=== PATIENT | female | born 1960 | race Native Hawaiian/Other Pacific Islander ===

== ENCOUNTER 2016-03-11 09:33 | Inpatient (IN) | payer OTHER ==
[~2016-03-11 09:33] MED LIST: ALUMSUS6 PO; BACLOFEN10 MG PO; CLOP75TA2 PO; DOCU100C10 PO; DONE5TAB PO; LAXATIVE1 TAB PO; LEXAPRO20 MG PO; METO25TA4 PO; ONDA4TAB3 PO; PANT40TA PO; POLY3350 PO; TGT ENTERIC-CO325 MG PO
== END 2016-04-11 08:00 | disposition still patient (30) ==
LOC: PAVB 09:33
PROVIDERS: ADMIT Family Medicine
DX: Z51.89 Encounter for other specified aftercare (principal)

== ENCOUNTER 2016-04-11 09:00 | Inpatient (IN) | payer OTHER | END 2016-05-12 10:17 | disposition still patient (30) | LOC: PAVB 09:00 | PROVIDERS: ADMIT Family Medicine | DX: Z51.89 Encounter for other specified aftercare (principal) ==

== ENCOUNTER 2016-04-28 15:02 | Outpatient (CLI) | payer OTHER | END 2016-04-28 19:36 | disposition home or self-care (01) | LOC: CT 15:02 | DX: G44.011 Episodic cluster headache, intractable (principal) ==

== ENCOUNTER 2016-05-12 10:46 | Inpatient (IN) | payer OTHER | END 2016-06-09 09:46 | disposition still patient (30) | LOC: PAVB 10:46 | PROVIDERS: ADMIT Family Medicine | DX: Z51.89 Encounter for other specified aftercare (principal) ==

== ENCOUNTER 2016-06-03 11:32 | Outpatient (CLI) | payer OTHER | END 2016-06-03 19:23 | disposition home or self-care (01) | LOC: MRI 11:32 | DX: R51 Headache (principal); Z86.73 Personal history of transient ischemic attack (TIA), and cerebral infarction without residual deficits ==

== ENCOUNTER 2016-06-09 10:45 | Inpatient (IN) | payer OTHER | END 2016-07-10 08:07 | disposition still patient (30) | LOC: PAVB 10:45 | PROVIDERS: ADMIT Family Medicine | DX: Z51.89 Encounter for other specified aftercare (principal) ==

== ENCOUNTER 2016-06-10 06:17 | Outpatient (CLI) | payer OTHER ==
[2016-06-10 06:45] LABS: PLATELET COUNT 273 K/uL (152-353)
[2016-06-10 06:55] LABS: SODIUM 143 mmol/L (136-145)
== END 2016-06-10 19:28 | disposition home or self-care (01) ==
LOC: LAB 06:17
PROVIDERS: Family Medicine
DX: I10 Essential (primary) hypertension (principal)
CPT/HCPCS: 36415; 80053; 85027

== ENCOUNTER 2016-07-10 09:32 | Inpatient (IN) | payer OTHER | END 2016-08-09 09:14 | disposition still patient (30) | LOC: PAVB 09:32 | PROVIDERS: ADMIT Family Medicine | DX: Z51.89 Encounter for other specified aftercare (principal) ==

== ENCOUNTER 2016-07-27 05:01 | Outpatient (CLI) | payer OTHER | END 2016-07-27 19:09 | disposition home or self-care (01) | LOC: LAB 05:01 | DX: Z16.24 Resistance to multiple antibiotics (principal) | CPT/HCPCS: 87081 ==

== ENCOUNTER 2016-08-09 10:08 | Inpatient (IN) | payer OTHER | END 2016-09-09 09:36 | disposition still patient (30) | LOC: PAVB 10:08 | PROVIDERS: ADMIT Family Medicine | DX: Z51.89 Encounter for other specified aftercare (principal) ==

== ENCOUNTER 2016-08-20 16:19 | Outpatient (CLI) | payer OTHER | END 2016-08-20 20:03 | disposition home or self-care (01) | LOC: LAB 16:19 | DX: R82.99 Other abnormal findings in urine (principal) | CPT/HCPCS: 81000; 87077; 87086; 87088; 87186 ==

== ENCOUNTER 2016-09-09 10:04 | Inpatient (IN) | payer OTHER | END 2016-10-09 15:23 | disposition still patient (30) | LOC: PAVB 10:04 | PROVIDERS: ADMIT Family Medicine | DX: Z51.89 Encounter for other specified aftercare (principal) ==

== ENCOUNTER 2016-09-21 09:17 | Outpatient (CLI) | payer OTHER | END 2016-09-21 10:50 | disposition home or self-care (01) | LOC: MRI 09:17 | DX: R51 Headache (principal); I72.8 Aneurysm of other specified arteries ==

== ENCOUNTER 2016-10-07 05:05 | Outpatient (CLI) | payer OTHER | END 2016-10-07 06:10 | disposition home or self-care (01) | LOC: LAB 05:05 | PROVIDERS: Family Medicine | DX: I10 Essential (primary) hypertension (principal) | CPT/HCPCS: 80061 ==

== ENCOUNTER 2016-10-09 15:45 | Inpatient (IN) | payer OTHER | END 2016-11-09 09:44 | disposition still patient (30) | LOC: PAVB 15:45 | PROVIDERS: ADMIT Family Medicine | DX: Z51.89 Encounter for other specified aftercare (principal) ==

== ENCOUNTER 2016-10-11 10:49 | Outpatient (CLI) | payer OTHER | END 2016-10-11 11:50 | disposition home or self-care (01) | LOC: LAB 10:49 | DX: R56.9 Unspecified convulsions (principal); R30.0 Dysuria | CPT/HCPCS: 80183; 81000; 87086; 87088 ==

== ENCOUNTER 2016-11-09 11:03 | Inpatient (IN) | payer OTHER | END 2016-12-10 08:42 | disposition still patient (30) | LOC: PAVB 11:03 | PROVIDERS: ADMIT Family Medicine | DX: Z51.89 Encounter for other specified aftercare (principal) ==

== ENCOUNTER 2016-11-09 18:41 | Outpatient (CLI) | payer OTHER | END 2016-11-09 19:12 | disposition home or self-care (01) | LOC: LAB 18:41 | DX: R35.8 Other polyuria (principal); R30.0 Dysuria | CPT/HCPCS: 81000; 87077; 87086; 87088; 87186 ==

== ENCOUNTER 2016-12-10 09:19 | Inpatient (IN) | payer OTHER | END 2017-01-09 10:40 | disposition still patient (30) | LOC: PAVB 09:19 | PROVIDERS: ADMIT Family Medicine | DX: Z51.89 Encounter for other specified aftercare (principal) ==

== ENCOUNTER 2016-12-13 04:45 | Outpatient (CLI) | payer OTHER ==
[2016-12-13 05:50] LABS: POTASSIUM 3.7 mmol/L (3.6-5.2); SODIUM 140 mmol/L (136-145)
[2016-12-13 06:38] LABS: PLATELET COUNT 243 K/uL (152-353)
== END 2016-12-13 18:57 | disposition home or self-care (01) ==
LOC: LAB 04:45
PROVIDERS: Family Medicine
DX: I10 Essential (primary) hypertension (principal)
CPT/HCPCS: 36415; 80053; 85027

== ENCOUNTER 2016-12-14 17:18 | Outpatient (CLI) | payer OTHER | END 2016-12-14 19:04 | disposition home or self-care (01) | LOC: RAD 17:18 | DX: M25.561 Pain in right knee (principal); M79.621 Pain in right upper arm ==

== ENCOUNTER 2017-01-05 13:51 | Outpatient (CLI) | payer OTHER | END 2017-01-05 19:09 | disposition home or self-care (01) | LOC: RAD 13:51 | DX: M79.604 Pain in right leg (principal); R60.0 Localized edema ==

== ENCOUNTER 2017-01-09 10:47 | Inpatient (IN) | payer OTHER | END 2017-02-09 12:58 | disposition still patient (30) | LOC: PAVB 10:47 | PROVIDERS: ADMIT Family Medicine ==

== ENCOUNTER 2017-02-09 13:55 | Inpatient (IN) | payer OTHER | END 2017-03-11 09:21 | disposition still patient (30) | LOC: PAVB 13:55 | PROVIDERS: ADMIT Family Medicine ==

== ENCOUNTER 2017-03-11 09:45 | Inpatient (IN) | payer OTHER | END 2017-04-11 09:32 | disposition still patient (30) | LOC: PAVB 09:45 | PROVIDERS: ADMIT Family Medicine ==

== ENCOUNTER 2017-03-15 16:19 | Outpatient (CLI) | payer OTHER | END 2017-03-15 17:20 | disposition home or self-care (01) | LOC: LAB 16:19 | DX: R30.0 Dysuria (principal); R35.8 Other polyuria | CPT/HCPCS: 81000; 87077; 87086; 87088; 87186 ==

== ENCOUNTER 2017-04-11 10:08 | Inpatient (IN) | payer OTHER | END 2017-05-12 09:51 | disposition still patient (30) | LOC: PAVB 10:08 | PROVIDERS: ADMIT Family Medicine ==

== ENCOUNTER 2017-04-19 06:49 | Outpatient (CLI) | payer OTHER | END 2017-04-19 19:02 | disposition home or self-care (01) | LOC: LAB 06:49 | DX: R56.9 Unspecified convulsions (principal) | CPT/HCPCS: 36415; 80183 ==

== ENCOUNTER 2017-05-12 10:43 | Inpatient (IN) | payer OTHER | END 2017-06-09 09:20 | disposition still patient (30) | LOC: PAVB 10:43 | PROVIDERS: ADMIT Family Medicine ==

== ENCOUNTER 2017-06-09 10:06 | Inpatient (IN) | payer OTHER | END 2017-07-10 08:00 | disposition still patient (30) | LOC: PAVB 10:06 | PROVIDERS: ADMIT Family Medicine ==

== ENCOUNTER 2017-06-13 03:57 | Outpatient (CLI) | payer OTHER ==
[2017-06-13 05:24] LABS: PLATELET COUNT 318 K/uL (152-353)
[2017-06-13 05:42] LABS: POTASSIUM 3.6 mmol/L (3.6-5.2)
== END 2017-06-13 19:16 | disposition home or self-care (01) ==
LOC: LABW 03:57
PROVIDERS: Family Medicine
DX: I10 Essential (primary) hypertension (principal)
CPT/HCPCS: 36415; 80053; 85027

== ENCOUNTER 2017-07-10 09:00 | Inpatient (IN) | payer OTHER | END 2017-08-09 09:05 | disposition still patient (30) | LOC: PAVB 09:00 | PROVIDERS: ADMIT Family Medicine ==

== ENCOUNTER 2017-08-09 09:47 | Inpatient (IN) | payer OTHER | END 2017-09-09 08:54 | disposition still patient (30) | LOC: PAVB 09:47 | PROVIDERS: ADMIT Family Medicine ==

== ENCOUNTER 2017-09-09 09:24 | Inpatient (IN) | payer OTHER | END 2017-10-09 14:20 | disposition still patient (30) | LOC: PAVB 09:24 | PROVIDERS: ADMIT Family Medicine ==

== ENCOUNTER 2017-10-09 14:56 | Inpatient (IN) | payer OTHER | END 2017-11-09 08:00 | disposition still patient (30) | LOC: PAVB 14:56 | PROVIDERS: ADMIT Family Medicine ==

== ENCOUNTER 2017-10-11 08:26 | Outpatient (CLI) | payer OTHER | END 2017-10-11 23:11 | disposition home or self-care (01) | LOC: LAB 08:26 | DX: R56.9 Unspecified convulsions (principal) | CPT/HCPCS: 36415; 80183 ==

== ENCOUNTER 2017-11-09 09:00 | Inpatient (IN) | payer OTHER | END 2017-12-10 10:19 | disposition still patient (30) | LOC: PAVB 09:00 | PROVIDERS: ADMIT Family Medicine ==

== ENCOUNTER 2017-12-10 11:04 | Inpatient (IN) | payer OTHER | END 2018-01-09 09:34 | disposition still patient (30) | LOC: PAVB 11:04 | PROVIDERS: ADMIT Family Medicine ==

== ENCOUNTER 2017-12-15 04:42 | Outpatient (CLI) | payer OTHER ==
[2017-12-15 08:15] LABS: PLATELET COUNT 284 K/uL (152-353)
== END 2017-12-15 23:15 | disposition home or self-care (01) ==
LOC: LAB 04:42
PROVIDERS: Family Medicine
DX: I10 Essential (primary) hypertension (principal)
CPT/HCPCS: 36415; 80053; 85027

== ENCOUNTER → 2018-01-05 | Day surgery (SDC) | payer OTHER ==
[2018-01-05 08:31] LABS: PLATELET COUNT 305 K/uL (152-353)
[2018-01-05 08:45] LABS: POTASSIUM 3.9 mmol/L (3.6-5.2)
== END | disposition home or self-care (01) ==
LOC: OR 07:25
PROVIDERS: Internal Medicine
PROC: 0DBK8ZZ Excision of Ascending Colon, Via Natural or Artificial Opening Endoscopic (ICD-10-PCS; principal; 2018-01-05)
DX: K63.5 Polyp of colon (principal); K57.90 Diverticulosis of intestine, part unspecified, without perforation or abscess without bleeding; K64.8 Other hemorrhoids; K92.2 Gastrointestinal hemorrhage, unspecified
CPT/HCPCS: 80053; 85027; J2001; J2704

== ENCOUNTER 2018-01-09 10:20 | Inpatient (IN) | payer OTHER | END 2018-02-09 08:48 | disposition still patient (30) | LOC: PAVB 10:20 | PROVIDERS: ADMIT Family Medicine ==

== ENCOUNTER 2018-02-09 10:02 | Inpatient (IN) | payer OTHER | END 2018-03-11 08:33 | disposition still patient (30) | LOC: PAVB 10:02 | PROVIDERS: ADMIT Family Medicine ==

== ENCOUNTER 2018-03-11 09:19 | Inpatient (IN) | payer OTHER ==
[2018-04-06] MEDS ORDERED: ASPIRIN325 M1 PO (02:55)
[2018-04-06] MEDS ORDERED: BACLOFEN5 MG PO (02:57)
[2018-04-06] MEDS ORDERED: AMITRIPTYLINE H10 MG PO (02:59)
[2018-04-06] MEDS ORDERED: CALCIUM 600+D31 TA2 PO (03:00)
[2018-04-06] MEDS ORDERED: CLARITIN10 M1 PO (03:01)
[2018-04-06] MEDS ORDERED: FURO20TA67 PO (03:02)
[2018-04-06] MEDS ORDERED: FURO40TA93 PO (03:02)
[2018-04-06] MEDS ORDERED: TRILEPTAL300 MG PO (03:03)
[2018-04-06] MEDS ORDERED: TRILEPTAL150 MG PO (03:04)
[2018-04-06] MEDS ORDERED: KLOR-CON M2020 MEQ PO (03:06)
== END 2018-04-11 11:06 | disposition still patient (30) ==
LOC: PAVB 09:19
PROVIDERS: ADMIT Family Medicine

== ENCOUNTER 2018-03-29 18:07 | Outpatient (CLI) | payer OTHER | END 2018-03-29 19:31 | disposition home or self-care (01) | LOC: CT 18:07 | DX: G40.89 Other seizures (principal); R51 Headache ==

== ENCOUNTER 2018-04-05 10:59 | Outpatient (CLI) | payer OTHER ==
[2018-04-06] MEDS ORDERED: ASPIRIN325 M1 PO (02:55)
[2018-04-06] MEDS ORDERED: BACLOFEN5 MG PO (02:57)
[2018-04-06] MEDS ORDERED: AMITRIPTYLINE H10 MG PO (02:59)
[2018-04-06] MEDS ORDERED: CALCIUM 600+D31 TA2 PO (03:00)
[2018-04-06] MEDS ORDERED: CLARITIN10 M1 PO (03:01)
[2018-04-06] MEDS ORDERED: FURO40TA93 PO (03:02)
[2018-04-06] MEDS ORDERED: FURO20TA67 PO (03:02)
[2018-04-06] MEDS ORDERED: TRILEPTAL300 MG PO (03:03)
[2018-04-06] MEDS ORDERED: TRILEPTAL150 MG PO (03:04)
[2018-04-06] MEDS ORDERED: KLOR-CON M2020 MEQ PO (03:06)
== END 2018-04-05 19:04 | disposition home or self-care (01) ==
LOC: LAB 10:59
DX: Z51.81 Encounter for therapeutic drug level monitoring (principal)
CPT/HCPCS: 36415; 80183

== ENCOUNTER 2018-04-05 19:49 | Observation (INO) | payer OTHER ==
[~2018-04-05] VITALS: Ht 170.2 cm; Wt 102.6 kg
[2018-04-05 20:03] VITALS: BP 138/88; TEMP 98.9
[2018-04-05 20:26] LABS: PLATELET COUNT 286 K/uL (152-353)
[2018-04-05 20:30] VITALS: BP 137/71
[2018-04-05 20:34] LABS: POTASSIUM 3.3 mmol/L (3.6-5.2)
[2018-04-05 21:00] VITALS: BP 148/77
[2018-04-05 21:30] VITALS: BP 143/83
[2018-04-05 22:00] VITALS: BP 131/71; TEMP 98.8
[2018-04-06] VITALS (7 sets, daily range): BP systolic 117–147; BP diastolic 66–80; TEMP 97.4–98.4; Ht 170.2 cm; Wt 102.6 kg
[2018-04-06] MEDS ORDERED: ASPIRIN325 M1 PO (02:55)
[2018-04-06] MEDS ORDERED: BACLOFEN5 MG PO (02:57)
[2018-04-06] MEDS ORDERED: AMITRIPTYLINE H10 MG PO (02:59)
[2018-04-06] MEDS ORDERED: CALCIUM 600+D31 TA2 PO (03:00)
[2018-04-06] MEDS ORDERED: CLARITIN10 M1 PO (03:01)
[2018-04-06] MEDS ORDERED: FURO20TA67 PO (03:02)
[2018-04-06] MEDS ORDERED: FURO40TA93 PO (03:02)
[2018-04-06] MEDS ORDERED: TRILEPTAL300 MG PO (03:03)
[2018-04-06] MEDS ORDERED: TRILEPTAL150 MG PO (03:04)
[2018-04-06] MEDS ORDERED: KLOR-CON M2020 MEQ PO (03:06)
[2018-04-07] VITALS: BP 117/64; TEMP 98.2
[2018-04-07 04:04] VITALS: BP 108/65; TEMP 98.1
[2018-04-07 08:22] VITALS: BP 151/98; TEMP 98.4
[2018-04-07 12:20] VITALS: BP 139/76; TEMP 97.6
[2018-04-07 16:02] VITALS: BP 135/89; TEMP 98.1
[2018-04-07 20:00] VITALS: BP 125/74; TEMP 98.1
[2018-04-08] VITALS: BP 122/55; TEMP 98.4
[2018-04-08 04:00] VITALS: BP 119/67; TEMP 98.5
[2018-04-08 08:08] VITALS: BP 117/54; TEMP 98.4
== END 2018-04-08 10:03 ==
LOC: ED 19:49 → MED/SURG 22:05
PROVIDERS: ADMIT Emergency Medicine
DX: G40.802 Other epilepsy, not intractable, without status epilepticus (principal); J01.30 Acute sphenoidal sinusitis, unspecified; R51 Headache; R31.29 Other microscopic hematuria; N21.0 Calculus in bladder
CPT/HCPCS: 36415; 80053; 80183; 81000; 85027; 96365; 96366; 96367; 99220; 99283; G0378; J0696

== ENCOUNTER 2018-04-09 04:04 | Outpatient (CLI) | payer OTHER ==
[~2018-04-09 04:04] MED LIST changes: +AMITRIPTYLINE H10 MG PO; +ASPIRIN325 M1 PO; +BACLOFEN5 MG PO; +CALCIUM 600+D31 TA2 PO; +CLARITIN10 M1 PO; +FURO20TA67 PO; +FURO40TA93 PO; +KLOR-CON M2020 MEQ PO; +TRILEPTAL150 MG PO; +TRILEPTAL300 MG PO
== END 2018-04-09 19:13 | disposition home or self-care (01) ==
LOC: LAB 04:04
PROVIDERS: Family Medicine
DX: Z13.220 Encounter for screening for lipoid disorders (principal); Z79.899 Other long term (current) drug therapy
CPT/HCPCS: 80061

== ENCOUNTER 2018-04-11 11:28 | Inpatient (IN) | payer OTHER | END 2018-05-12 10:55 | disposition still patient (30) | LOC: PAVB 11:28 | PROVIDERS: ADMIT Family Medicine ==

== ENCOUNTER 2018-04-12 05:47 | Outpatient (CLI) | payer OTHER | END 2018-04-12 21:29 | disposition home or self-care (01) | LOC: LAB 05:47 | DX: R56.9 Unspecified convulsions (principal) | CPT/HCPCS: 80183 ==

== ENCOUNTER 2018-05-12 11:17 | Inpatient (IN) | payer OTHER | END 2018-06-09 10:20 | disposition still patient (30) | LOC: PAVB 11:17 | PROVIDERS: ADMIT Family Medicine ==

== ENCOUNTER 2018-06-09 11:14 | Inpatient (IN) | payer OTHER | END 2018-07-10 10:40 | disposition still patient (30) | LOC: PAVB 11:14 | PROVIDERS: ADMIT Family Medicine ==

== ENCOUNTER 2018-06-13 08:20 | Outpatient (CLI) | payer OTHER ==
[2018-06-13 08:33] LABS: PLATELET COUNT 296 K/uL (152-353)
[2018-06-13 08:46] LABS: POTASSIUM 4.2 mmol/L (3.6-5.2)
== END 2018-06-13 23:48 | disposition home or self-care (01) ==
LOC: LAB 08:20
PROVIDERS: Family Medicine
DX: I10 Essential (primary) hypertension (principal)
CPT/HCPCS: 80053; 85027

== ENCOUNTER 2018-06-28 15:59 | Outpatient (CLI) | payer OTHER | END 2018-06-28 23:13 | disposition home or self-care (01) | LOC: LAB 15:59 | DX: N39.0 Urinary tract infection, site not specified (principal) | CPT/HCPCS: 81000; 87088 ==

== ENCOUNTER 2018-07-03 13:12 | Outpatient (CLI) | payer OTHER | END 2018-07-03 21:03 | disposition home or self-care (01) | LOC: MAMMO 13:12 | DX: Z12.31 Encounter for screening mammogram for malignant neoplasm of breast (principal); Z42.8 Encounter for other plastic and reconstructive surgery following medical procedure or healed injury ==

== ENCOUNTER 2018-07-10 11:23 | Inpatient (IN) | payer OTHER | END 2018-08-09 11:17 | disposition still patient (30) | LOC: PAVB 11:23 | PROVIDERS: ADMIT Family Medicine ==

== ENCOUNTER 2018-07-12 09:02 | Outpatient (CLI) | payer OTHER | END 2018-07-12 19:43 | disposition home or self-care (01) | LOC: MAMMO 09:02 | DX: R92.8 Other abnormal and inconclusive findings on diagnostic imaging of breast (principal) ==

== ENCOUNTER 2018-08-09 12:27 | Inpatient (IN) | payer OTHER | END 2018-09-09 08:38 | disposition still patient (30) | LOC: PAVB 12:27 | PROVIDERS: ADMIT Family Medicine | DX: Z51.89 Encounter for other specified aftercare (principal) ==

== ENCOUNTER 2018-09-09 09:32 | Inpatient (IN) | payer OTHER | END 2018-10-09 09:38 | disposition still patient (30) | LOC: PAVB 09:32 | PROVIDERS: ADMIT Family Medicine ==

== ENCOUNTER 2018-09-26 14:00 | Outpatient (CLI) | payer OTHER | END 2018-09-26 20:00 | disposition home or self-care (01) | LOC: RAD 14:00 | DX: M79.604 Pain in right leg (principal); I82.4Z1 Acute embolism and thrombosis of unspecified deep veins of right distal lower extremity ==

== ENCOUNTER 2018-09-27 10:25 | Outpatient (CLI) | payer OTHER | END 2018-09-27 23:36 | disposition home or self-care (01) | LOC: US 10:25 | DX: M79.604 Pain in right leg (principal) ==

== ENCOUNTER 2018-10-02 09:14 | Outpatient (CLI) | payer OTHER | END 2018-10-02 23:21 | disposition home or self-care (01) | LOC: CT 09:14 | DX: M79.661 Pain in right lower leg (principal) ==

== ENCOUNTER 2018-10-09 11:29 | Inpatient (IN) | payer OTHER | END 2018-11-09 10:35 | disposition still patient (30) | LOC: PAVB 11:29 | PROVIDERS: ADMIT Family Medicine ==

== ENCOUNTER 2018-10-11 03:42 | Outpatient (CLI) | payer OTHER | END 2018-10-11 19:09 | disposition home or self-care (01) | LOC: LAB 03:42 | DX: Z51.81 Encounter for therapeutic drug level monitoring (principal) | CPT/HCPCS: 36415; 80183 ==

== ENCOUNTER 2018-10-13 05:49 | Outpatient (CLI) | payer OTHER | END 2018-10-13 20:39 | disposition home or self-care (01) | LOC: LAB 05:49 | DX: R56.9 Unspecified convulsions (principal) | CPT/HCPCS: 36415; 80183 ==

== ENCOUNTER 2018-11-09 11:21 | Inpatient (IN) | payer OTHER | END 2018-12-10 16:26 | disposition still patient (30) | LOC: PAVB 11:21 | PROVIDERS: ADMIT Family Medicine ==

== ENCOUNTER 2018-12-10 17:10 | Inpatient (IN) | payer OTHER | END 2019-01-09 09:21 | disposition still patient (30) | LOC: PAVB 17:10 | PROVIDERS: ADMIT Family Medicine ==

== ENCOUNTER 2018-12-12 11:38 | Outpatient (CLI) | payer OTHER ==
[2018-12-12 12:09] LABS: PLATELET COUNT 292 K/uL (152-353)
[2018-12-12 13:22] LABS: POTASSIUM 4.1 mmol/L (3.6-5.2)
== END 2018-12-12 22:56 | disposition home or self-care (01) ==
LOC: LAB 11:38
PROVIDERS: Family Medicine
DX: I10 Essential (primary) hypertension (principal)
CPT/HCPCS: 80053; 85027

== ENCOUNTER 2019-01-09 10:34 | Inpatient (IN) | payer OTHER | END 2019-02-09 11:10 | disposition still patient (30) | LOC: PAVB 10:34 | PROVIDERS: ADMIT Family Medicine ==

== ENCOUNTER 2019-02-09 11:39 | Inpatient (IN) | payer OTHER | END 2019-03-11 08:00 | disposition still patient (30) | LOC: PAVB 11:39 | PROVIDERS: ADMIT Family Medicine ==

== ENCOUNTER 2019-03-11 10:10 | Inpatient (IN) | payer OTHER | END 2019-04-11 08:35 | disposition still patient (30) | LOC: PAVB 10:10 | PROVIDERS: ADMIT Family Medicine ==

== ENCOUNTER 2019-03-14 05:36 | Outpatient (CLI) | payer OTHER | END 2019-03-14 20:42 | disposition home or self-care (01) | LOC: LAB 05:36 | PROVIDERS: Family Medicine | DX: E78.49 Other hyperlipidemia (principal) | CPT/HCPCS: 36415; 80061 ==

== ENCOUNTER 2019-04-11 08:54 | Inpatient (IN) | payer OTHER | END 2019-05-12 09:57 | disposition still patient (30) | LOC: PAVB 08:54 | PROVIDERS: ADMIT Family Medicine ==

== ENCOUNTER 2019-04-13 07:12 | Outpatient (CLI) | payer OTHER | END 2019-04-13 19:29 | disposition home or self-care (01) | LOC: LAB 07:12 | DX: G40.89 Other seizures (principal) | CPT/HCPCS: 80183 ==

== ENCOUNTER 2019-05-06 12:18 | Emergency (ER) | payer OTHER ==
[~2019-05-06] VITALS: Ht 170.2 cm; Wt 93.4 kg
[2019-05-06 12:20] VITALS: TEMP 97.7
[2019-05-06 13:45] VITALS: BP 113/60
== END 2019-05-06 13:45 ==
LOC: ED 12:18
DX: M54.5 Low back pain (principal); G89.29 Other chronic pain; I69.320 Aphasia following cerebral infarction; W05.0XXA Fall from non-moving wheelchair, initial encounter; Y92.128 Other place in nursing home as the place of occurrence of the external cause
CPT/HCPCS: 99283

== ENCOUNTER 2019-05-10 15:47 | Outpatient (CLI) | payer OTHER | END 2019-05-10 22:44 | disposition home or self-care (01) | LOC: LAB 15:47 | DX: L60.8 Other nail disorders (principal) | CPT/HCPCS: 87220 ==

== ENCOUNTER 2019-05-11 10:22 | Outpatient (CLI) | payer OTHER | END 2019-05-11 19:39 | disposition home or self-care (01) | LOC: RAD 10:22 | DX: R13.12 Dysphagia, oropharyngeal phase (principal) ==

== ENCOUNTER 2019-05-12 10:38 | Inpatient (IN) | payer OTHER | END 2019-06-10 13:16 | disposition still patient (30) | LOC: PAVB 10:38 | PROVIDERS: ADMIT Family Medicine ==

== ENCOUNTER 2019-06-10 14:03 | Inpatient (IN) | payer OTHER | END 2019-07-11 09:42 | disposition still patient (30) | LOC: PAVB 14:03 | PROVIDERS: ADMIT Family Medicine ==

== ENCOUNTER 2019-06-14 04:42 | Outpatient (CLI) | payer OTHER ==
[2019-06-14 06:33] LABS: POTASSIUM 3.6 mmol/L (3.6-5.2)
[2019-06-14 17:07] LABS: PLATELET COUNT 277 K/uL (152-353)
== END 2019-06-14 21:28 | disposition home or self-care (01) ==
LOC: LAB 04:42
PROVIDERS: Family Medicine
DX: I10 Essential (primary) hypertension (principal); I63.9 Cerebral infarction, unspecified
CPT/HCPCS: 80053; 85027

== ENCOUNTER 2019-07-11 10:30 | Inpatient (IN) | payer OTHER | END 2019-08-10 09:03 | disposition still patient (30) | LOC: PAVB 10:30 | PROVIDERS: ADMIT Family Medicine ==

== ENCOUNTER 2019-08-10 10:09 | Inpatient (IN) | payer OTHER | END 2019-09-10 09:12 | disposition still patient (30) | LOC: PAVB 10:09 | PROVIDERS: ADMIT Family Medicine | CPT/HCPCS: 87635; U0002 ==

== ENCOUNTER 2019-09-10 10:08 | Inpatient (IN) | payer OTHER | END 2019-10-10 10:21 | disposition still patient (30) | LOC: PAVB 10:08 | PROVIDERS: ADMIT Family Medicine | CPT/HCPCS: 87635; U0002 ==

== ENCOUNTER 2019-10-10 11:16 | Inpatient (IN) | payer OTHER | END 2019-11-10 09:17 | disposition still patient (30) | LOC: PAVB 11:16 | PROVIDERS: ADMIT Family Medicine | CPT/HCPCS: 87635; U0002 ==

== ENCOUNTER 2019-10-14 18:38 | Outpatient (CLI) | payer OTHER | END 2019-10-14 19:05 | disposition home or self-care (01) | LOC: LAB 18:38 | DX: G40.89 Other seizures (principal) | CPT/HCPCS: 36415; 80183 ==

== ENCOUNTER 2019-11-10 09:43 | Inpatient (IN) | payer OTHER | END 2019-12-11 12:18 | disposition still patient (30) | LOC: PAVB 09:43 | PROVIDERS: ADMIT Family Medicine | CPT/HCPCS: 87635; U0002; U0003 ==

== ENCOUNTER 2019-12-11 13:08 | Inpatient (IN) | payer OTHER | END 2020-01-10 11:06 | disposition still patient (30) | LOC: PAVB 13:08 | PROVIDERS: ADMIT Family Medicine ==

== ENCOUNTER 2019-12-12 06:33 | Outpatient (CLI) | payer OTHER ==
[2019-12-12 06:54] LABS: PLATELET COUNT 277 K/uL (152-353)
[2019-12-12 07:05] LABS: POTASSIUM 3.7 mmol/L (3.6-5.2)
== END 2019-12-12 23:52 | disposition home or self-care (01) ==
LOC: LAB 06:33
PROVIDERS: Family Medicine
DX: I63.50 Cerebral infarction due to unspecified occlusion or stenosis of unspecified cerebral artery (principal); R60.0 Localized edema; I10 Essential (primary) hypertension; I63.9 Cerebral infarction, unspecified
CPT/HCPCS: 80053; 85027

== ENCOUNTER 2020-01-10 13:50 | Inpatient (IN) | payer OTHER | END 2020-02-10 08:00 | disposition still patient (30) | LOC: PAVB 13:50 | PROVIDERS: ADMIT Family Medicine ==

== ENCOUNTER 2020-02-10 09:00 | Inpatient (IN) | payer OTHER | END 2020-03-11 10:00 | disposition still patient (30) | LOC: PAVB 09:00 | PROVIDERS: ADMIT Family Medicine; ATTEND Family Medicine ==

== ENCOUNTER 2020-03-11 11:21 | Inpatient (IN) | payer OTHER | END 2020-04-11 09:04 | disposition still patient (30) | LOC: PAVB 11:21 | PROVIDERS: ADMIT Family Medicine; ATTEND Family Medicine ==

== ENCOUNTER 2020-03-13 07:43 | Outpatient (CLI) | payer OTHER | END 2020-03-13 18:57 | disposition home or self-care (01) | LOC: LAB 07:43 | PROVIDERS: ATTEND Family Medicine | DX: E78.49 Other hyperlipidemia (principal) | CPT/HCPCS: 80061 ==

== ENCOUNTER → 2020-03-19 | Emergency (ER) | payer OTHER ==
[~2020-03-19] VITALS: Ht 170.2 cm; Wt 93.4 kg
[2020-03-19 22:39] LABS: PLATELET COUNT 301 K/uL (152-353)
[2020-03-19 22:43] LABS: POTASSIUM 3.8 mmol/L (3.6-5.2)
[2020-03-19 22:54] LABS: PARTIAL THROMBOPLASTIN TIME 26.1 SECONDS (24.5-33.6)
[2020-03-19 23:56] VITALS: BP 110/88; TEMP 98.8
== END ==
LOC: ED 21:43
PROVIDERS: Family Medicine
DX: M79.604 Pain in right leg (principal)
CPT/HCPCS: 36415; 80053; 85027; 85610; 85730; 96372; 99283; J1650

== ENCOUNTER 2020-03-20 08:34 | Outpatient (CLI) | payer OTHER | END 2020-03-20 20:05 | disposition home or self-care (01) | LOC: US 08:34 | PROVIDERS: ATTEND Family Medicine | DX: R60.0 Localized edema (principal); M79.661 Pain in right lower leg ==

== ENCOUNTER 2020-04-08 00:15 | Emergency (ER) | payer OTHER ==
[~2020-04-08] VITALS: Ht 170.2 cm; Wt 93.4 kg
[2020-04-08 00:15] VITALS: TEMP 98.9
[2020-04-08 01:54] LABS: PLATELET COUNT 320 K/uL (152-353)
[2020-04-08 02:09] LABS: POTASSIUM 3.7 mmol/L (3.6-5.2)
[2020-04-08 04:14] VITALS: BP 121/65
== END 2020-04-08 04:19 | disposition home or self-care (01) ==
LOC: ED 00:15
PROVIDERS: Emergency Medicine Emergency Medical Services
DX: G40.909 Epilepsy, unspecified, not intractable, without status epilepticus (principal)
CPT/HCPCS: 36415; 80053; 80183; 81000; 83735; 85027; 93005; 99283

== ENCOUNTER 2020-04-11 09:30 | Inpatient (IN) | payer OTHER | END 2020-05-12 14:57 | disposition still patient (30) | LOC: PAVB 09:30 | PROVIDERS: ADMIT Family Medicine; ATTEND Family Medicine ==

== ENCOUNTER 2020-04-14 09:43 | Outpatient (CLI) | payer OTHER | END 2020-04-14 21:07 | disposition home or self-care (01) | LOC: LAB 09:43 | PROVIDERS: ATTEND Family Medicine | DX: G40.89 Other seizures (principal) | CPT/HCPCS: 80183 ==

== ENCOUNTER 2020-05-02 15:35 | Outpatient (CLI) | payer OTHER | END 2020-05-02 20:01 | disposition home or self-care (01) | LOC: LAB 15:35 | PROVIDERS: ATTEND Family Medicine | DX: R30.0 Dysuria (principal) | CPT/HCPCS: 81000; 87077; 87086; 87088; 87186 ==

== ENCOUNTER 2020-05-10 23:00 | Emergency (ER) | payer OTHER ==
[~2020-05-10] VITALS: Ht 170.2 cm; Wt 88.9 kg
[2020-05-10 23:43] LABS: PLATELET COUNT 334 K/uL (152-353)
[2020-05-10 23:54] LABS: POTASSIUM 3.9 mmol/L (3.6-5.2); SODIUM 140 mmol/L (136-145)
[2020-05-11 01:25] VITALS: BP 106/61; TEMP 98.1
== END 2020-05-11 01:40 ==
LOC: ED 23:00
PROVIDERS: Family Medicine
DX: I69.351 Hemiplegia and hemiparesis following cerebral infarction affecting right dominant side (principal)
CPT/HCPCS: 36415; 80053; 82550; 82553; 83605; 84484; 85027; 99283

== ENCOUNTER 2020-05-12 15:24 | Inpatient (IN) | payer OTHER | END 2020-06-09 09:55 | disposition still patient (30) | LOC: PAVB 15:24 | PROVIDERS: ADMIT Family Medicine; ATTEND Family Medicine ==

== ENCOUNTER 2020-05-15 10:42 | Outpatient (CLI) | payer OTHER | END 2020-05-15 20:08 | disposition home or self-care (01) | LOC: LAB 10:42 | PROVIDERS: ATTEND Family Medicine | DX: R82.998 Other abnormal findings in urine (principal) | CPT/HCPCS: 81000 ==

== ENCOUNTER → 2020-05-21 14:15 | Outpatient (CLI) | payer OTHER | END | disposition home or self-care (01) | LOC: US 14:15 | PROVIDERS: ATTEND Family Medicine | DX: M79.661 Pain in right lower leg (principal); L53.8 Other specified erythematous conditions ==

== ENCOUNTER → 2020-05-21 17:06 | Outpatient (CLI) | payer OTHER ==
[2020-05-21 17:14] LABS: PLATELET COUNT 309 K/uL (152-353)
== END | disposition home or self-care (01) ==
LOC: LAB 17:06
PROVIDERS: ATTEND Family Medicine
DX: I73.9 Peripheral vascular disease, unspecified (principal); M79.661 Pain in right lower leg; L53.8 Other specified erythematous conditions
CPT/HCPCS: 85027

== ENCOUNTER 2020-05-23 10:41 | Outpatient (CLI) | payer OTHER | END 2020-05-23 21:51 | disposition home or self-care (01) | LOC: MAMMO 10:41 | PROVIDERS: ATTEND Family Medicine | DX: T85.49XA Other mechanical complication of breast prosthesis and implant, initial encounter (principal) ==

== ENCOUNTER 2020-06-09 10:32 | Inpatient (IN) | payer OTHER | END 2020-07-10 10:16 | disposition still patient (30) | LOC: PAVB 10:32 | PROVIDERS: ADMIT Family Medicine; ATTEND Family Medicine ==

== ENCOUNTER 2020-06-10 11:38 | Outpatient (CLI) | payer OTHER ==
[2020-06-10 13:18] LABS: POTASSIUM 3.9 mmol/L (3.6-5.2)
[2020-06-10 14:55] LABS: PLATELET COUNT 283 K/uL (152-353)
== END 2020-06-10 20:14 | disposition home or self-care (01) ==
LOC: LAB 11:38
PROVIDERS: ATTEND Family Medicine
DX: I63.50 Cerebral infarction due to unspecified occlusion or stenosis of unspecified cerebral artery (principal); I73.9 Peripheral vascular disease, unspecified; R60.0 Localized edema
CPT/HCPCS: 80053; 85027

== ENCOUNTER 2020-07-10 10:47 | Inpatient (IN) | payer OTHER | END 2020-08-09 10:52 | disposition still patient (30) | LOC: PAVB 10:47 | PROVIDERS: ADMIT Family Medicine; ATTEND Family Medicine ==

== ENCOUNTER 2020-08-09 11:18 | Inpatient (IN) | payer OTHER | END 2020-09-09 14:40 | disposition still patient (30) | LOC: PAVB 11:18 | PROVIDERS: ADMIT Family Medicine; ATTEND Family Medicine ==

== ENCOUNTER 2020-09-09 15:13 | Inpatient (IN) | payer OTHER | END 2020-10-09 08:00 | disposition still patient (30) | LOC: PAVB 15:13 | PROVIDERS: ADMIT Family Medicine; ATTEND Family Medicine ==

== ENCOUNTER 2020-10-09 09:00 | Inpatient (IN) | payer OTHER | END 2020-11-09 08:00 | disposition still patient (30) | LOC: PAVB 09:00 | PROVIDERS: ADMIT Family Medicine; ATTEND Family Medicine ==

== ENCOUNTER 2020-10-14 10:28 | Outpatient (CLI) | payer OTHER | END 2020-10-14 19:15 | disposition home or self-care (01) | LOC: LAB 10:28 | PROVIDERS: ATTEND Family Medicine | DX: G40.89 Other seizures (principal) | CPT/HCPCS: 80183 ==

== ENCOUNTER 2020-11-09 09:00 | Inpatient (IN) | payer OTHER | END 2020-12-10 10:35 | disposition still patient (30) | LOC: PAVB 09:00 | PROVIDERS: ADMIT Family Medicine; ATTEND Family Medicine ==

== ENCOUNTER 2020-12-01 16:21 | Outpatient (CLI) | payer OTHER | END 2020-12-01 22:05 | disposition home or self-care (01) | LOC: LAB 16:21 | PROVIDERS: ATTEND Family Medicine | DX: R30.0 Dysuria (principal); R35.0 Frequency of micturition | CPT/HCPCS: 81000; 87077; 87086; 87088; 87186 ==

== ENCOUNTER 2020-12-10 13:27 | Inpatient (IN) | payer OTHER | END 2021-01-09 08:45 | disposition still patient (30) | LOC: PAVB 13:27 | PROVIDERS: ADMIT Family Medicine; ATTEND Family Medicine ==

== ENCOUNTER 2020-12-11 07:44 | Outpatient (CLI) | payer OTHER ==
[2020-12-11 10:40] LABS: POTASSIUM 4.6 mmol/L (3.6-5.2)
[2020-12-11 11:02] LABS: PLATELET COUNT 264 K/uL (152-353)
== END 2020-12-11 21:21 | disposition home or self-care (01) ==
LOC: LAB 07:44
PROVIDERS: ATTEND Family Medicine
DX: I73.9 Peripheral vascular disease, unspecified (principal); I63.50 Cerebral infarction due to unspecified occlusion or stenosis of unspecified cerebral artery; R60.0 Localized edema
CPT/HCPCS: 80053; 85027

== ENCOUNTER 2021-02-04 14:39 | Outpatient (CLI) | payer OTHER | END 2021-02-04 19:20 | disposition home or self-care (01) | LOC: RAD 14:39 | PROVIDERS: ATTEND Family Medicine | DX: M79.662 Pain in left lower leg (principal) ==

== ENCOUNTER 2021-03-11 10:37 | Inpatient (IN) | payer OTHER | END 2021-04-11 08:23 | disposition still patient (30) | LOC: PAVB 10:37 | PROVIDERS: ADMIT Family Medicine; ATTEND Family Medicine ==

== ENCOUNTER 2021-03-11 11:25 | Outpatient (CLI) | payer OTHER | END 2021-03-11 20:24 | disposition home or self-care (01) | LOC: LAB 11:25 | PROVIDERS: ATTEND Family Medicine | DX: E78.49 Other hyperlipidemia (principal) | CPT/HCPCS: 80061 ==

== ENCOUNTER 2021-04-11 09:01 | Inpatient (IN) | payer OTHER | END 2021-05-12 09:32 | disposition still patient (30) | LOC: PAVB 09:01 | PROVIDERS: ADMIT Family Medicine; ATTEND Family Medicine ==

== ENCOUNTER 2021-04-13 08:48 | Outpatient (CLI) | payer OTHER | END 2021-04-13 18:49 | disposition home or self-care (01) | LOC: LAB 08:48 | PROVIDERS: ATTEND Family Medicine | DX: G40.89 Other seizures (principal) | CPT/HCPCS: 80183 ==

== ENCOUNTER 2021-05-12 10:54 | Outpatient (CLI) | payer OTHER | END 2021-05-12 19:29 | disposition home or self-care (01) | LOC: US 10:54 | PROVIDERS: ATTEND Family Medicine | DX: R22.41 Localized swelling, mass and lump, right lower limb (principal) ==

== ENCOUNTER 2021-05-12 15:36 | Inpatient (IN) | payer OTHER | END 2021-06-09 09:00 | disposition still patient (30) | LOC: PAVB 15:36 | PROVIDERS: ADMIT Family Medicine; ATTEND Family Medicine ==

== ENCOUNTER 2021-06-09 12:49 | Inpatient (IN) | payer OTHER | END 2021-07-10 08:43 | disposition still patient (30) | LOC: PAVB 12:49 | PROVIDERS: ADMIT Family Medicine; ATTEND Family Medicine ==

== ENCOUNTER 2021-06-10 08:03 | Outpatient (CLI) | payer OTHER ==
[2021-06-10 09:09] LABS: PLATELET COUNT 276 K/uL (152-353)
== END 2021-06-10 19:22 | disposition home or self-care (01) ==
LOC: LAB 08:03
PROVIDERS: ATTEND Family Medicine
DX: I63.50 Cerebral infarction due to unspecified occlusion or stenosis of unspecified cerebral artery (principal)
CPT/HCPCS: 80053; 85027

== ENCOUNTER 2021-07-10 09:54 | Inpatient (IN) | payer OTHER | END 2021-08-09 10:25 | disposition still patient (30) | LOC: PAVB 09:54 | PROVIDERS: ADMIT Family Medicine; ATTEND Family Medicine ==

== ENCOUNTER 2021-08-09 01:22 | Inpatient (IN) | payer OTHER | END 2021-09-09 09:40 | disposition still patient (30) | LOC: PAVB 01:22 | PROVIDERS: ADMIT Family Medicine; ATTEND Family Medicine ==

== ENCOUNTER 2021-09-09 14:21 | Inpatient (IN) | payer OTHER | END 2021-10-09 09:07 | disposition still patient (30) | LOC: PAVB 14:21 | PROVIDERS: ADMIT Family Medicine; ATTEND Family Medicine ==

== ENCOUNTER 2021-10-09 11:31 | Inpatient (IN) | payer OTHER ==
[~2021-10-09] VITALS: Ht 170.2 cm; Wt 92.6 kg
== END 2021-11-09 09:18 | disposition still patient (30) ==
LOC: PAVB 11:31
PROVIDERS: ADMIT Family Medicine; ATTEND Family Medicine

== ENCOUNTER 2021-10-12 22:14 | Emergency (ER) | payer OTHER ==
[~2021-10-12] VITALS: Ht 170.2 cm; Wt 88.9 kg
[2021-10-12 22:53] LABS: PLATELET COUNT 336 K/uL (152-353)
[2021-10-12 23:04] LABS: POTASSIUM 3.4 mmol/L (3.6-5.2)
[2021-10-13 01:56] VITALS: BP 126/51; TEMP 98.5
== END 2021-10-13 02:00 | disposition home or self-care (01) ==
LOC: ED 22:14
PROVIDERS: Emergency Medicine
DX: N39.0 Urinary tract infection, site not specified (principal); E86.0 Dehydration
CPT/HCPCS: 36415; 80053; 81002; 81015; 84484; 85027; 87077; 87086; 87088; 87185; 87186; 99283

== ENCOUNTER 2021-10-13 07:10 | Outpatient (CLI) | payer OTHER | END 2021-10-13 18:49 | disposition home or self-care (01) | LOC: LAB 07:10 | PROVIDERS: ATTEND Family Medicine | DX: G40.89 Other seizures (principal) | CPT/HCPCS: 80183 ==

== ENCOUNTER 2021-10-14 07:30 | Outpatient (CLI) | payer OTHER ==
[~2021-10-14] VITALS: Ht 170.2 cm; Wt 92.6 kg
[2021-10-14 08:30] VITALS: BP 117/53; TEMP 98.3
[2021-10-14 11:10] VITALS: BP 126/58; TEMP 97.9
== END 2021-10-14 18:55 | disposition home or self-care (01) ==
LOC: INF 07:30
PROVIDERS: ATTEND Internal Medicine
DX: E86.0 Dehydration (principal)
CPT/HCPCS: 96360; 96361

== ENCOUNTER 2021-10-15 07:49 | Outpatient (CLI) | payer OTHER ==
[2021-10-15 08:29] LABS: POTASSIUM 3.8 mmol/L (3.6-5.2)
== END 2021-10-15 18:58 | disposition home or self-care (01) ==
LOC: LAB 07:49
PROVIDERS: ATTEND Family Medicine
DX: G40.89 Other seizures (principal); R79.89 Other specified abnormal findings of blood chemistry
CPT/HCPCS: 80053; 80183

== ENCOUNTER 2021-11-09 12:02 | Inpatient (IN) | payer OTHER | END 2021-12-10 09:04 | disposition still patient (30) | LOC: PAVB 12:02 | PROVIDERS: ADMIT Family Medicine; ATTEND Family Medicine ==

== ENCOUNTER 2021-12-10 08:59 | Outpatient (CLI) | payer OTHER ==
[2021-12-10 09:18] LABS: PLATELET COUNT 333 K/uL (152-353)
[2021-12-10 09:25] LABS: POTASSIUM 4.2 mmol/L (3.6-5.2)
== END 2021-12-10 19:28 | disposition home or self-care (01) ==
LOC: LAB 08:59
PROVIDERS: ATTEND Family Medicine
DX: I63.50 Cerebral infarction due to unspecified occlusion or stenosis of unspecified cerebral artery (principal); I73.9 Peripheral vascular disease, unspecified; I10 Essential (primary) hypertension
CPT/HCPCS: 80053; 85027

== ENCOUNTER 2021-12-10 12:07 | Inpatient (IN) | payer OTHER | END 2022-01-09 10:28 | disposition still patient (30) | LOC: PAVB 12:07 | PROVIDERS: ADMIT Family Medicine; ATTEND Family Medicine ==

== ENCOUNTER 2021-12-15 09:41 | Outpatient (CLI) | payer OTHER ==
[2021-12-15 09:50] LABS: PLATELET COUNT 340 K/uL (152-353)
== END 2021-12-15 18:48 | disposition home or self-care (01) ==
LOC: LAB 09:41
PROVIDERS: ATTEND Family Medicine
DX: I63.50 Cerebral infarction due to unspecified occlusion or stenosis of unspecified cerebral artery (principal)
CPT/HCPCS: 85027

== ENCOUNTER 2021-12-22 06:25 | Outpatient (CLI) | payer OTHER ==
[2021-12-22 08:22] LABS: PLATELET COUNT 330 K/uL (152-353)
== END 2021-12-22 19:25 | disposition home or self-care (01) ==
LOC: LAB 06:25
PROVIDERS: ATTEND Family Medicine
DX: D64.89 Other specified anemias (principal)
CPT/HCPCS: 85027

== ENCOUNTER 2021-12-23 16:03 | Outpatient (CLI) | payer OTHER | END 2021-12-23 18:56 | disposition home or self-care (01) | LOC: LAB 16:03 | PROVIDERS: ATTEND Family Medicine | DX: D64.89 Other specified anemias (principal) | CPT/HCPCS: 82272 ==

== ENCOUNTER 2021-12-27 15:41 | Outpatient (CLI) | payer OTHER | END 2021-12-27 18:57 | disposition home or self-care (01) | LOC: LAB 15:41 | PROVIDERS: ATTEND Family Medicine | DX: D64.89 Other specified anemias (principal) | CPT/HCPCS: 82272 ==

== ENCOUNTER 2021-12-30 09:15 | Outpatient (CLI) | payer OTHER | END 2021-12-30 19:18 | disposition home or self-care (01) | LOC: LAB 09:15 | PROVIDERS: ATTEND Family Medicine | DX: D64.89 Other specified anemias (principal) | CPT/HCPCS: 82272 ==

== ENCOUNTER 2022-01-05 06:43 | Outpatient (CLI) | payer OTHER ==
[2022-01-05 07:18] LABS: PLATELET COUNT 303 K/uL (152-353)
== END 2022-01-05 20:52 | disposition home or self-care (01) ==
LOC: LAB 06:43
PROVIDERS: ATTEND Family Medicine
DX: D64.9 Anemia, unspecified (principal)
CPT/HCPCS: 82728; 83540; 83550; 85027

== ENCOUNTER 2022-01-08 18:49 | Emergency (ER) | payer OTHER ==
[~2022-01-08] VITALS: Ht 170.2 cm; Wt 93.0 kg
[2022-01-08 20:25] VITALS: BP 126/78; TEMP 98.1
== END 2022-01-08 20:25 | disposition home or self-care (01) ==
LOC: ED 18:49
DX: K92.2 Gastrointestinal hemorrhage, unspecified (principal)
CPT/HCPCS: 36415; 82272; 85014; 85018; 99283

== ENCOUNTER 2022-01-09 12:50 | Inpatient (IN) | payer OTHER | END 2022-02-09 14:49 | disposition still patient (30) | LOC: PAVB 12:50 | PROVIDERS: ADMIT Family Medicine; ATTEND Family Medicine ==

== ENCOUNTER 2022-01-14 08:59 | Outpatient (CLI) | payer OTHER | END 2022-01-14 19:08 | disposition home or self-care (01) | LOC: CT 08:59 | PROVIDERS: ATTEND Family Medicine | DX: R10.9 Unspecified abdominal pain (principal); K62.5 Hemorrhage of anus and rectum; D64.89 Other specified anemias | CPT/HCPCS: 36415; 82565; 84520 ==

== ENCOUNTER 2022-02-09 15:44 | Inpatient (IN) | payer OTHER | END 2022-03-11 15:09 | disposition still patient (30) | LOC: PAVB 15:44 | PROVIDERS: ADMIT Family Medicine; ATTEND Family Medicine | DX: N39.0 Urinary tract infection, site not specified (principal); M62.81 Muscle weakness (generalized); R26.2 Difficulty in walking, not elsewhere classified; Z74.1 Need for assistance with personal care; N20.0 Calculus of kidney; N20.1 Calculus of ureter ==

== ENCOUNTER 2022-02-09 17:27 | Outpatient (CLI) | payer OTHER ==
[2022-02-09 17:49] LABS: PLATELET COUNT 245 K/uL (152-353)
[2022-02-09 18:01] LABS: POTASSIUM 4.1 mmol/L (3.6-5.2)
== END 2022-02-09 19:30 | disposition home or self-care (01) ==
LOC: LAB 17:27
PROVIDERS: ATTEND Family Medicine
DX: R50.9 Fever, unspecified (principal)
CPT/HCPCS: 36415; 80053; 85027; 87040; 87077; 87086; 87088; 87186; 87205; 87502

== ENCOUNTER 2022-02-15 07:48 | Emergency (ER) | payer OTHER ==
[~2022-02-15] VITALS: Ht 170.2 cm; Wt 93.0 kg
[2022-02-15 07:48] VITALS: TEMP 98.5
[2022-02-15 09:00] VITALS: BP 114/64
== END 2022-02-15 09:00 ==
LOC: ED 07:48
DX: R56.9 Unspecified convulsions (principal); K59.09 Other constipation; K64.8 Other hemorrhoids
CPT/HCPCS: 80183; 99283

== ENCOUNTER 2022-02-16 00:32 | Emergency (ER) | payer OTHER ==
[~2022-02-16] VITALS: Ht 170.2 cm; Wt 93.0 kg
[2022-02-16 01:32] LABS: PLATELET COUNT 331 K/uL (152-353)
[2022-02-16 01:38] LABS: POTASSIUM 4.5 mmol/L (3.6-5.2)
[2022-02-16 05:20] VITALS: BP 148/80; TEMP 97.7
== END 2022-02-16 05:20 | disposition short-term general hospital (02) ==
LOC: ED 00:32
PROVIDERS: Emergency Medicine Emergency Medical Services
DX: N13.8 Other obstructive and reflux uropathy (principal); N20.1 Calculus of ureter
CPT/HCPCS: 36415; 80053; 82150; 82272; 83690; 85027; 85610; 96361; 96365; 96375; 99284; J0696; J2270; J2405; J3490; Q9963

== ENCOUNTER 2022-03-11 17:28 | Inpatient (IN) | payer OTHER | END 2022-04-11 10:38 | disposition still patient (30) | LOC: PAVB 17:28 | PROVIDERS: ADMIT Family Medicine; ATTEND Family Medicine ==

== ENCOUNTER 2022-03-12 08:29 | Outpatient (CLI) | payer OTHER | END 2022-03-12 19:16 | disposition home or self-care (01) | LOC: LAB 08:29 | PROVIDERS: ATTEND Family Medicine | DX: M79.661 Pain in right lower leg (principal); I10 Essential (primary) hypertension; E78.49 Other hyperlipidemia | CPT/HCPCS: 80061 ==

== ENCOUNTER 2022-04-11 12:28 | Inpatient (IN) | payer OTHER | END 2022-05-12 08:51 | disposition still patient (30) | LOC: PAVB 12:28 | PROVIDERS: ADMIT Family Medicine; ATTEND Family Medicine ==

== ENCOUNTER 2022-04-12 08:02 | Outpatient (CLI) | payer OTHER | END 2022-04-12 19:04 | disposition home or self-care (01) | LOC: LAB 08:02 | PROVIDERS: ATTEND Family Medicine | DX: G40.89 Other seizures (principal) | CPT/HCPCS: 80183 ==

== ENCOUNTER 2022-05-12 11:08 | Inpatient (IN) | payer OTHER | END 2022-06-09 12:05 | disposition still patient (30) | LOC: PAVB 11:08 | PROVIDERS: ADMIT Family Medicine; ATTEND Family Medicine ==

== ENCOUNTER 2022-05-26 19:07 | Outpatient (CLI) | payer OTHER | END 2022-05-26 20:37 | disposition home or self-care (01) | LOC: LAB 19:07 | PROVIDERS: ATTEND Family Medicine | DX: R82.998 Other abnormal findings in urine (principal); R35.0 Frequency of micturition | CPT/HCPCS: 81000; 87077; 87086; 87088; 87186 ==

== ENCOUNTER 2022-06-04 16:40 | Outpatient (CLI) | payer OTHER | END 2022-06-04 18:58 | disposition home or self-care (01) | LOC: LAB 16:40 | PROVIDERS: ATTEND Family Medicine | DX: J02.9 Acute pharyngitis, unspecified (principal) | CPT/HCPCS: 87651 ==

== ENCOUNTER 2022-06-09 09:46 | Outpatient (CLI) | payer OTHER ==
[2022-06-09 10:11] LABS: PLATELET COUNT 255 K/uL (152-353)
[2022-06-09 10:23] LABS: POTASSIUM 3.8 mmol/L (3.6-5.2)
== END 2022-06-09 19:14 | disposition home or self-care (01) ==
LOC: LAB 09:46
PROVIDERS: ATTEND Family Medicine
DX: I63.50 Cerebral infarction due to unspecified occlusion or stenosis of unspecified cerebral artery (principal)
CPT/HCPCS: 80053; 85027

== ENCOUNTER 2022-06-09 13:16 | Inpatient (IN) | payer OTHER | END 2022-07-10 11:28 | disposition still patient (30) | LOC: PAVB 13:16 | PROVIDERS: ADMIT Family Medicine; ATTEND Family Medicine ==

== ENCOUNTER 2022-06-24 15:27 | Outpatient (CLI) | payer OTHER | END 2022-06-24 19:39 | disposition home or self-care (01) | LOC: RAD 15:27 | PROVIDERS: ATTEND Family Medicine | DX: M79.605 Pain in left leg (principal); M25.562 Pain in left knee ==

== ENCOUNTER 2022-07-10 12:01 | Inpatient (IN) | payer OTHER | END 2022-08-09 10:50 | disposition still patient (30) | LOC: PAVB 12:01 | PROVIDERS: ADMIT Family Medicine; ATTEND Family Medicine ==

== ENCOUNTER 2022-08-09 13:50 | Inpatient (IN) | payer OTHER | END 2022-09-09 10:37 | disposition still patient (30) | LOC: PAVB 13:50 | PROVIDERS: ADMIT Family Medicine; ATTEND Family Medicine ==

== ENCOUNTER 2022-09-09 11:21 | Inpatient (IN) | payer OTHER | END 2022-10-09 17:35 | disposition still patient (30) | LOC: PAVB 11:21 | PROVIDERS: ADMIT Family Medicine; ATTEND Family Medicine ==

== ENCOUNTER 2022-10-11 07:43 | Outpatient (CLI) | payer OTHER | END 2022-10-11 19:23 | disposition home or self-care (01) | LOC: LAB 07:43 | PROVIDERS: ATTEND Family Medicine | DX: G40.89 Other seizures (principal) | CPT/HCPCS: 36415; 80183 ==

== ENCOUNTER 2022-12-14 09:40 | Outpatient (CLI) | payer OTHER ==
[2022-12-14 10:47] LABS: PLATELET COUNT 226 K/uL (152-353)
[2022-12-14 10:52] LABS: POTASSIUM 4.1 mmol/L (3.6-5.2)
== END 2022-12-14 22:02 | disposition home or self-care (01) ==
LOC: LAB 09:40
PROVIDERS: ATTEND Family Medicine
DX: I63.50 Cerebral infarction due to unspecified occlusion or stenosis of unspecified cerebral artery (principal); R60.0 Localized edema; I73.9 Peripheral vascular disease, unspecified
CPT/HCPCS: 80053; 85027